=== PATIENT | female | born 1980 | race Caucasian/White ===

== ENCOUNTER 2019-06-28 10:37 | Emergency (ER) | payer SELFPAY ==
[~2019-06-28] VITALS: Ht 165.1 cm; Wt 67.1 kg
[2019-06-28] MEDS ORDERED: ACETAMINOPHEN 325 MG TABLET ONE (11:06)
[2019-06-28] MEDS ORDERED: ACETAMINOPHEN ES 500 MG TABLET PO ONE (11:15)
--- NOTE | 2019-06-28 12:43 | NUR ---
Patient discharged to home in stable conditon. Written and verbal after care instructions given. Patient verbalizes understanding of instructions.pt with so.
[2019-06-28 12:45] VITALS: BP 112/88
[2019-06-30 09:55] LABS: *URINE HCG, QUAL POSITIVE (NEGATIVE)
== END 2019-06-28 12:45 | disposition home or self-care (01) ==
LOC: ER 10:37
DX: O26.891 Other specified pregnancy related conditions, first trimester (principal); M43.6 Torticollis; Z3A.01 Less than 8 weeks gestation of pregnancy
CPT/HCPCS: 36415; 84703; A4663

== ENCOUNTER 2020-01-09 19:02 | Emergency (ER) | payer MEDICAID ==
[~2020-01-09] VITALS: Ht 165.1 cm; Wt 77.1 kg
--- NOTE | 2020-01-09 19:38 | NUR ---
DR. BLOOM AT BEDSIDE FOR MSE.
[2020-01-09] MEDS ORDERED: ACETAMINOPHEN ES 500 MG TABLET PO ONE (19:45)
[2020-01-09] MEDS ORDERED: ACETAMINOPHEN ES 500 MG TABLET ONE (19:49)
[2020-01-09 20:53] LABS: *BILIRUBIN,URIN NEGATIVE (NEGATIVE); *BLOOD, URINE NEGATIVE (NEGATIVE); *CLARITY,URINE CLEAR (CLEAR); *COLOR,URINE YELLOW (YELLOW); *KETONES,URINE NEGATIVE (NEGATIVE); *UROBILINOGEN,URINE 0.2 E.U./dl (NORMAL); LEUKOCYTE ESTERASE ,URINE NEGATIVE (NEGATIVE); NITRITE, URINE NEGATIVE (NEGATIVE); PH,URINE 5.5 (5.0-8.0); UGLUCOSE NEGATIVE (NEGATIVE)
--- NOTE | 2020-01-09 21:40 | NUR ---
Patient discharged to home in stable condition. Written and verbal after care instructions given. Patient verbalizes understanding of instructions. Stressed follow up or return to ER for worsening s/s. pt phone number-
[2020-01-09 21:41] VITALS: BP 105/60
== END 2020-01-09 21:42 | disposition home or self-care (01) ==
LOC: ER 19:08
DX: M54.5 Low back pain (principal); O34.12 Maternal care for benign tumor of corpus uteri, second trimester; D25.9 Leiomyoma of uterus, unspecified; Z3A.16 16 weeks gestation of pregnancy
CPT/HCPCS: 36415; 76856; A4663; A9150